=== PATIENT | male | born 1980 | race Caucasian/White ===

== ENCOUNTER → 2021-01-12 | Outpatient (CLI) | payer BC ==
[~2021-01-12] MED LIST: BENTYL 10MG CAP10 MG PO; NORVASC 5 MG TAB5 MG PO; PROVENTIL HFA6.7 GM INH
[2021-01-12 11:05] LABS: HEMOGLOBIN 14.5 gm/dl (14.0-17.5); RED BLOOD COUNT 5.04 M/UL (4.20-5.50); WHITE BLOOD COUNT 7.2 K/UL (4.5-11.0)
[2021-01-12 11:34] LABS: BUN/CREATININE RATIO 17 (0-10)
== END ==
LOC: LAB 10:27
PROVIDERS: Nurse Practitioner Family
DX: E11.65 Type 2 diabetes mellitus with hyperglycemia (principal); E55.9 Vitamin D deficiency, unspecified; R35.0 Frequency of micturition; R35.1 Nocturia
CPT/HCPCS: 36415; 80053; 80061; 84153; 85025

== ENCOUNTER → 2021-01-26 | Outpatient (CLI) | payer BC | LOC: SLEEP-COR 11:45 | DX: G47.33 Obstructive sleep apnea (adult) (pediatric) (principal) | CPT/HCPCS: 95811 ==